=== PATIENT | female | born 1970 | race Caucasian/White ===

== ENCOUNTER 2021-08-03 16:25 | Emergency (ER) | payer OTHER ==
[2021-08-03 17:02] LABS: BASOPHIL 0.6 % (0-2); EOSINOPHIL 2.3 % (0-5); HCT 41.1 % (37.0-47.0); HGB 13.8 g/dl (12.5-16.0); LYMPHOCYTE 25.1 % (15-48); MCH 31.4 pg (25.0-31.0); MCHC 33.6 g/dL (32.0-36.0); MCV 93.6 fL (78.0-100.0); MONOCYTE 5.5 % (0-12); MPV 9.6 fL (6.0-9.5); NEUTROPHIL 66.2 % (41-80); NRBC 0; PLT 315 K/uL (150-400); RBC 4.39 M/uL (4.20-5.40); RDW 11.9 % (11.5-14.0); WBC 9.8 K/uL (4.0-10.5)
[2021-08-03 17:06] LABS: BILIRUBIN NEGATIVE (NEGATIVE); BLOOD 3+ Ery/uL (NEGATIVE); CLARITY CLOUDY (CLEAR); COLOR RED (YELLOW); GLUCOSE (U) NORMAL (NORMAL); LEUKOCYTES NEGATIVE Leu/uL (NEGATIVE); NITRITE NEGATIVE (NEGATIVE); PROTEIN 2+ mg/dL (NEGATIVE); SPECIFIC GRAVITY 1.025 (1.001-1.030); UROBILINOGEN 0.2 mg/dL (0.2-1.0); pH 6.5 (5.0-9.0)
[2021-08-03 17:08] LABS: BACTERIA TRACE; URINARY RBC TNTC
[2021-08-03 17:19] LABS: BUN/CREAT RATIO (CALC) 16.9 RATIO; CREATININE 0.77 mg/dL (0.51-0.95); POTASSIUM 3.7 mmol/L (3.5-5.1)
== END 2021-08-03 19:45 | disposition home or self-care (01) ==
LOC: FER 16:25
PROVIDERS: Nurse Practitioner Family
DX: R31.9 Hematuria, unspecified (principal); Z88.0 Allergy status to penicillin; Z88.1 Allergy status to other antibiotic agents; Z91.040 Latex allergy status
CPT/HCPCS: 36415; 80048; 81001; 85025; J1885; J2405; J7030